=== PATIENT | male | born 1945 | race Caucasian/White ===

== ENCOUNTER → 2016-04-15 | Outpatient (CLI) | payer OTHER ==
--- NOTE | 2016-04-15 13:44 | REP ---
CHEST, TWO VIEWS: No comparison. There is no evidence of acute infiltrate. There is slight interstitial fibrosis in the lung bases. The heart is slightly enlarged. There is some calcification of the thoracic aorta. The mediastinal silhouette is otherwise unremarkable. There are degenerative changes of the spine. IMPRESSION: No evidence of acute pulmonary disease. Very mild cardiomegaly and chronic fibrotic changes. Signed by Nikos Chaves MD 04/15/2016 03:56 P
== END ==
LOC: M RAD 12:33
PROVIDERS: ATTEND Internal Medicine
DX: R05 Cough (principal); F17.210 Nicotine dependence, cigarettes, uncomplicated

== ENCOUNTER → 2016-09-02 | Outpatient (CLI) | payer OTHER | LOC: M LAB 12:05 | PROVIDERS: ATTEND Urology | DX: R97.20 Elevated prostate specific antigen [PSA] (principal) ==

== ENCOUNTER 2017-02-12 20:19 | Inpatient (IN) | payer OTHER ==
[2017-02-12 22:12] LABS: HEMATOCRIT 45.8 % (42.0-52.0); HEMOGLOBIN 15.5 g/dl (14.0-18.0); MEAN CORPUSCULAR HGB CONC 33.8 g/dl (32.0-36.5); MEAN CORPUSCULAR VOLUME 97.4 fl (80.0-96.0); PLATELET COUNT, AUTOMATED 230 10^3/uL (150-450); RED CELL DISTRIBUTION WIDTH 12.3 % (11.5-14.5); WHITE BLOOD COUNT 7.8 10^3/uL (4.0-10.0)
[2017-02-12 22:15] LABS: AMPHETAMINES LEVEL URINE NEGATIVE (NEGATIVE); BARBITURATES URINE NEGATIVE (NEGATIVE); BENZODIAZEPINES URINE NEGATIVE (NEGATIVE); CANNABINOIDS URINE NEGATIVE (NEGATIVE); COCAINE METABOLITE URINE NEGATIVE (NEGATIVE); METHADONE URINE NEGATIVE (NEGATIVE); OPIATES URINE NEGATIVE (NEGATIVE); PHENCYCLIDINE URINE NEGATIVE (NEGATIVE)
[2017-02-12 22:45] LABS: ALBUMIN 4.7 GM/DL (3.2-5.2); ALBUMIN/GLOBULIN RATIO 1.74 (1.00-1.93); ALKALINE PHOSPHATASE 60 U/L (45-117); ALT/SGPT 19 U/L (12-78); ANION GAP 9 MEQ/L (8-16); AST/SGOT 17 U/L (7-37); BILIRUBIN,DIRECT 0.1 MG/DL (0.0-0.2); BILIRUBIN,TOTAL 0.3 MG/DL (0.2-1.0); BLOOD UREA NITROGEN 11 MG/DL (7-18); CALCIUM LEVEL 8.7 MG/DL (8.8-10.2); CARBON DIOXIDE LEVEL 26 MEQ/L (21-32); CHLORIDE LEVEL 106 MEQ/L (98-107); CREATININE FOR GFR 1.02 MG/DL (0.70-1.30); GLOMERULAR FILTRATION RATE > 60.0 (>42); GLUCOSE, FASTING 87 MG/DL (83-110); SALICYLATE LEVEL 4.9 MG/DL (5.0-30.0); SODIUM LEVEL 141 MEQ/L (136-145); TOTAL PROTEIN 7.4 GM/DL (6.4-8.2)
[2017-02-12 22:46] LABS: ACETAMINOPHEN LEVEL < 2.0 UG/ML (10.0-30.0)
[2017-02-13] MEDS ORDERED: ACETAMINOPHEN TAB 650MG DOSE (2X325MG) PO (00:15)
[2017-02-13] MEDS ORDERED: MOM 30ML SUSPENSION UDC PO (00:15)
[2017-02-13] MEDS ORDERED: MAALOX 30 ML SUSP *UDC PO (00:15)
[2017-02-13] MEDS ORDERED: ALFUZOSIN 10 MG PO (09:00)
[2017-02-13] MEDS: FINASTERIDE 5 MG TAB PO (09:30)
[2017-02-13] MEDS: GEMFIBROZIL 600 MG TAB PO ×2 (09:30→20:30)
[2017-02-13] MEDS: ATORVASTATIN 20 MG TAB PO (09:30)
[2017-02-13] MEDS: VITAMIN D (CHOLECALCIFEROL) 400 INTERNATIONAL UNITS TAB PO (09:30)
[2017-02-13] MEDS: LISINOPRIL 20 MG TAB PO (09:32)
[2017-02-13] MEDS: ESCITALOPRAM OXALATE 10 MG TAB (LEXAPRO) PO (10:47)
[2017-02-13] MEDS: traZODone 50 MG TAB PO (20:30)
[2017-02-14] MEDS: LISINOPRIL 20 MG TAB PO (08:22)
[2017-02-14] MEDS: ATORVASTATIN 20 MG TAB PO (08:22)
[2017-02-14] MEDS: GEMFIBROZIL 600 MG TAB PO ×2 (08:22→20:38)
[2017-02-14] MEDS: FINASTERIDE 5 MG TAB PO (08:22)
[2017-02-14] MEDS: ESCITALOPRAM OXALATE 10 MG TAB (LEXAPRO) PO (08:22)
[2017-02-14] MEDS: VITAMIN D (CHOLECALCIFEROL) 400 INTERNATIONAL UNITS TAB PO (08:22)
[2017-02-14] MEDS: traZODone 50 MG TAB PO (20:38)
[2017-02-15] MEDS: GEMFIBROZIL 600 MG TAB PO (08:19)
[2017-02-15] MEDS: VITAMIN D (CHOLECALCIFEROL) 400 INTERNATIONAL UNITS TAB PO (08:19)
[2017-02-15] MEDS: ATORVASTATIN 20 MG TAB PO (08:19)
[2017-02-15] MEDS: ESCITALOPRAM OXALATE 10 MG TAB (LEXAPRO) PO (08:19)
[2017-02-15] MEDS: FINASTERIDE 5 MG TAB PO (08:19)
[2017-02-15] MEDS: LISINOPRIL 20 MG TAB PO (08:20)
== END 2017-02-15 14:15 | disposition home or self-care (01) | DRG 881 ==
LOC: M ED INP 02-13 00:03 → M ED 20:19 → M PSY 02-13 00:45
DX: F32.9 Major depressive disorder, single episode, unspecified (principal); R45.851 Suicidal ideations; I10 Essential (primary) hypertension; E78.00 Pure hypercholesterolemia, unspecified; Z79.899 Other long term (current) drug therapy

== ENCOUNTER → 2017-03-03 | Outpatient (CLI) | payer OTHER | LOC: M SMT 13:56 | DX: Z85.46 Personal history of malignant neoplasm of prostate (principal); Z53.9 Procedure and treatment not carried out, unspecified reason ==

== ENCOUNTER → 2017-08-30 | Outpatient (CLI) | payer OTHER ==
[2017-08-30 19:03] LABS: PROSTATIC SPECIFIC AG MONITOR 3.44 NG/ML (< 4.0)
== END ==
LOC: M SMT 13:27
DX: R97.21 Rising PSA following treatment for malignant neoplasm of prostate (principal)
CPT/HCPCS: 84153

== ENCOUNTER 2021-02-25 14:23 | Emergency (ER) | payer OTHER ==
[~2021-02-25] VITALS: Ht 170.2 cm; Wt 87.7 kg
[~2021-02-25 14:23] MED LIST changes: -TRAM50TA2 PO
[2021-02-25] MEDS ORDERED: TRAM50TA2 PO (15:52)
[2021-02-25 16:20] VITALS: BP 132/85
== END 2021-02-25 16:23 | disposition home or self-care (01) ==
LOC: M ED 14:23
DX: M54.32 Sciatica, left side (principal); S76.012A Strain of muscle, fascia and tendon of left hip, initial encounter; W18.39XA Other fall on same level, initial encounter; Y92.018 Other place in single-family (private) house as the place of occurrence of the external cause; I10 Essential (primary) hypertension; F41.9 Anxiety disorder, unspecified; N40.0 Benign prostatic hyperplasia without lower urinary tract symptoms; Z79.899 Other long term (current) drug therapy; F17.210 Nicotine dependence, cigarettes, uncomplicated

== ENCOUNTER → 2021-02-25 | Outpatient (CLI) | payer OTHER ==
[~2021-02-25] MED LIST: ALFU10TA3 PO; ATOR80TA59 PO; D3400TAB PO; ESCI10TA16 PO; FINA5TAB2 PO; FISH100042 PO; GEMF600T5 PO; LISI20TA33 PO; TRAM50TA2 PO
== END ==
LOC: M WUC 10:02
PROVIDERS: ATTEND Nurse Practitioner Family
DX: M25.552 Pain in left hip (principal)

== ENCOUNTER → 2021-03-03 | Outpatient (CLI) | payer OTHER ==
[~2021-03-03] MED LIST changes: +TRAM50TA2 PO
== END ==
LOC: M SOG 11:23
PROVIDERS: ATTEND Orthopaedic Surgery
DX: M51.16 Intervertebral disc disorders with radiculopathy, lumbar region (principal); M47.817 Spondylosis without myelopathy or radiculopathy, lumbosacral region; M25.78 Osteophyte, vertebrae

== ENCOUNTER → 2021-04-10 | Outpatient (CLI) | payer OTHER | LOC: M PLARAD 13:49 | PROVIDERS: ATTEND Orthopaedic Surgery | DX: M51.16 Intervertebral disc disorders with radiculopathy, lumbar region (principal) ==

== ENCOUNTER → 2022-06-09 | Outpatient (CLI) | payer OTHER | LOC: M PLAIMG 09:35 | DX: M17.0 Bilateral primary osteoarthritis of knee (principal); M11.261 Other chondrocalcinosis, right knee; M11.262 Other chondrocalcinosis, left knee; M22.2X1 Patellofemoral disorders, right knee; M22.2X2 Patellofemoral disorders, left knee; M25.861 Other specified joint disorders, right knee; M25.862 Other specified joint disorders, left knee; I70.203 Unspecified atherosclerosis of native arteries of extremities, bilateral legs; M19.071 Primary osteoarthritis, right ankle and foot; M19.072 Primary osteoarthritis, left ankle and foot; M77.31 Calcaneal spur, right foot; M77.32 Calcaneal spur, left foot ==

== ENCOUNTER → 2022-11-25 | Outpatient (CLI) | payer OTHER | LOC: M RAD 13:38 | PROVIDERS: ATTEND Physician Assistant Medical | DX: Z12.2 Encounter for screening for malignant neoplasm of respiratory organs (principal); Z87.891 Personal history of nicotine dependence ==

== ENCOUNTER → 2023-03-07 | Outpatient (CLI) | payer OTHER | LOC: M RAD 09:05 | PROVIDERS: ATTEND Physician Assistant Medical | DX: I65.22 Occlusion and stenosis of left carotid artery (principal) ==

== ENCOUNTER → 2023-07-14 | Outpatient (CLI) | payer OTHER | LOC: M RAD 13:32 | PROVIDERS: ATTEND Physician Assistant Medical | DX: R91.1 Solitary pulmonary nodule (principal) ==

== ENCOUNTER 2023-11-10 18:08 | Emergency (ER) | payer OTHER ==
[~2023-11-10] VITALS: Ht 170.2 cm; Wt 89.3 kg
[~2023-11-10 18:08] MED LIST changes: -DOXY-323
[2023-11-10 18:16] VITALS: TEMP 98.4
[2023-11-10] MEDS ORDERED: DOXY-441 (18:29)
[2023-11-10 19:21] LABS: HEMOGLOBIN 14.2 g/dl (13.5-17.5); MEAN CORPUSCULAR HEMOGLOBIN 33.4 pg (27.0-33.0); MEAN CORPUSCULAR HGB CONC 33.8 g/dl (32.0-36.5); MEAN CORPUSCULAR VOLUME 98.8 fl (80.0-96.0); PLATELET COUNT, AUTOMATED 273 10^3/uL (150-450); RED BLOOD COUNT 4.25 10^6/uL (4.30-6.10); WHITE BLOOD COUNT 14.4 10^3/uL (4.0-10.0)
[2023-11-10] MEDS: IPRATROPIUM 0.5MG/ALBUTEROL 2.5MG INH SOL UD 3ML (DUONEB) NEB ONE ×2 (19:22→21:11)
[2023-11-10 19:27] LABS: CK-MB VALUE MASS 2.4 NG/ML (<3.6)
[2023-11-10 19:29] LABS: BLOOD UREA NITROGEN 25 MG/DL (9-23); CALCIUM LEVEL 9.3 MG/DL (8.3-10.6); CARBON DIOXIDE LEVEL 26 MMOL/L (20-31); CHLORIDE LEVEL 101 MMOL/L (98-107); CPK CREATINE PHOSPHOKINASE 481 U/L (46-171); CREATININE FOR GFR 1.08 MG/DL (0.70-1.30); GLOMERULAR FILTRATION RATE > 60.0 (>42); GLUCOSE, FASTING 136 MG/DL (74-106); MB/CK RELATIVE INDEX 0.49 (< OR =4); POTASSIUM SERUM 3.9 MMOL/L (3.5-5.1); SODIUM LEVEL 134 MMOL/L (136-145)
[2023-11-10] MEDS ORDERED: ISOVUE-370 76% 100ML VIAL As Ordered ONE (19:47)
[2023-11-10 19:56] LABS: LYMPHOCYTES 10 % (16-44); METAMYELOCYTES 3 % (0-0); MONOCYTES 9 % (0-5); NEUTROPHILS 62 % (28-66); PLATELET ESTIMATE NORMAL (NORMAL)
[2023-11-10] MEDS: ONDANSETRON 4MG 2ML VIAL IV ONE (20:31)
[2023-11-10] MEDS: MORPHINE 4 MG/ML 1ML VIAL IV ONE (20:44)
[2023-11-10 21:41] LABS: MB/CK RELATIVE INDEX 0.49 (< OR =4)
[2023-11-10] MEDS ORDERED: HEPARIN SOD (PORCINE) 5000UNITS/ML 1ML VIAL/SYRINGE IV PRN (21:55)
[2023-11-10] MEDS: AZITHROMYCIN 250MG TABLET PO ONE (22:07)
[2023-11-10] MEDS: cefTRIAXone SOD 1 GM in D5W MINI-BAG PLUS 50 ML IV ONE (22:08)
[2023-11-10] MEDS: NS 1,000 ML IV ONE (22:57)
[2023-11-10 23:31] LABS: CK-MB VALUE MASS 1.9 NG/ML (<3.6)
[2023-11-10 23:33] LABS: MB/CK RELATIVE INDEX 0.5 (< OR =4)
[2023-11-11 00:18] LABS: HEMOGLOBIN 13.2 g/dl (13.5-17.5); MEAN CORPUSCULAR HEMOGLOBIN 33.4 pg (27.0-33.0); MEAN CORPUSCULAR HGB CONC 33.8 g/dl (32.0-36.5); MEAN CORPUSCULAR VOLUME 98.7 fl (80.0-96.0); PLATELET COUNT, AUTOMATED 252 10^3/uL (150-450); RED BLOOD COUNT 3.95 10^6/uL (4.30-6.10)
[2023-11-11] MEDS: HEPARIN SOD (PORCINE) 5000UNITS/ML 1ML VIAL/SYRINGE IV ONE (00:29)
[2023-11-11] MEDS: HEPARIN DRIP 25,000 UNITS in IV 1 EA IV SCH (00:33)
[2023-11-11] MEDS: ASPIRIN 325 MG TAB PO ONE (00:35)
[2023-11-11 00:45] VITALS: BP 144/67; O2SAT 94
[2023-11-11] MEDS: MORPHINE 4 MG/ML 1ML VIAL IV ONE (00:47)
== END 2023-11-11 00:59 | disposition short-term general hospital (02) ==
LOC: M ED 18:08
DX: I21.4 Non-ST elevation (NSTEMI) myocardial infarction (principal); J18.9 Pneumonia, unspecified organism; I10 Essential (primary) hypertension; N40.0 Benign prostatic hyperplasia without lower urinary tract symptoms; Z79.899 Other long term (current) drug therapy
CPT/HCPCS: 71045; 71046; 71275; 80047; 80048; 82550; 82553; 84484; 85025; 85027; 85730; 87486; 87581; 87633; 87798; 93005; 93041; 94640; 94760; 96374; 96375; 96376; 99285; J0696; J2405; Q9967

== ENCOUNTER → 2023-11-10 | Outpatient (CLI) | payer OTHER ==
[~2023-11-10] MED LIST changes: +ALFU10TA23 PO; -ALFU10TA3 PO; +DOXY-323
== END ==
LOC: M WUC 10:05
PROVIDERS: ATTEND Student in an Organized Health Care Education/Training Program
DX: J20.9 Acute bronchitis, unspecified (principal)

== ENCOUNTER → 2024-02-14 | Outpatient (CLI) | payer OTHER ==
[~2024-02-14] MED LIST changes: +DOXY-441
== END ==
LOC: M WUC 12:47
PROVIDERS: ATTEND Physician Assistant
DX: J20.9 Acute bronchitis, unspecified (principal); R05.9 Cough, unspecified

== ENCOUNTER → 2024-04-10 | Outpatient (CLI) | payer OTHER | LOC: M RAD 10:50 | PROVIDERS: ATTEND Physician Assistant Medical | DX: R05.3 Chronic cough (principal); J98.11 Atelectasis; R91.1 Solitary pulmonary nodule; I25.10 Atherosclerotic heart disease of native coronary artery without angina pectoris; I77.810 Thoracic aortic ectasia ==

== ENCOUNTER 2024-10-16 08:48 | Emergency (ER) | payer OTHER ==
[~2024-10-16] VITALS: Ht 170.2 cm; Wt 93.8 kg
[2024-10-16 08:52] VITALS: O2SAT 99
[2024-10-16] MEDS ORDERED: LEVO125T4 (09:02)
[2024-10-16] MEDS: KETOROLAC 30 MG/ML 1 ML VIAL IV ONE (10:21)
[2024-10-16] MEDS ORDERED: METH-1164 PO (10:58)
[2024-10-16 11:13] VITALS: BP 137/65; TEMP 96.6
== END 2024-10-16 11:14 | disposition home or self-care (01) ==
LOC: M ED 08:48
DX: M54.50 Low back pain, unspecified (principal); I70.90 Unspecified atherosclerosis; I10 Essential (primary) hypertension; Z79.899 Other long term (current) drug therapy
CPT/HCPCS: 72131; 96374; 99284; J1885

== ENCOUNTER → 2024-11-01 | Outpatient (CLI) | payer OTHER ==
[~2024-11-01] MED LIST changes: +LEVO125T4; +METH-1164 PO
== END ==
LOC: M PLAIMG 13:07
PROVIDERS: ATTEND Internal Medicine Critical Care Medicine
DX: R91.8 Other nonspecific abnormal finding of lung field (principal)